=== PATIENT | male | born 1990 | race American Indian/Alaskan Native ===

== ENCOUNTER 2021-04-10 17:13 | Emergency (ER) | payer SELFPAY ==
[2021-04-10] MEDS ORDERED: SODIUM CHLORIDE 0.9% 1000 ML 1,000 ML IV ONE (17:48)
--- NOTE | 2021-04-10 17:53 | Event Note ---
ED Screening Note Date of service: 04/10/21 Time: 17:49 ED Screening Note: Patient presents to the ER today with complaints of seizure. Patient states that he was told by his coworkers that he had a seizure today at work Patient states that the last thing he remembers was he was in a squat position about the left furniture in the next thing he knew he was waking up off the floor. His coworkers told him he had a seizure for about 2 minutes. He states that he was told that he was foaming at the mouth, his eyes was rolled back, and he was stiff all over. Patient states that he did bite his tongue. He denies history of seizures. He denies any other significant past medical history. He states that his does drink alcohol daily and typically is after work. He states that he drink about 3 beers per day. He also states that it was very hot at work and he was sweating a lot at work today. This initial assessment/diagnostic orders/clinical plan/treatment(s) is/are subject to change based on patients health status, clinical progression and re- assessment by fellow clinical providers in the ED. Further treatment and workup at subsequent clinical providers discretion. Patient/guardian urged not to elope from the ED as their condition may be serious if not clinically assessed and managed. Initial orders include: Seizure order set.
[2021-04-10 18:07] LABS: Basophils # (Auto) 0.1 K/mm3 (0.0-0.1); Basophils % (Auto) 0.5 % (0.0-1.8); Eosinophils % (Auto) 0.1 % (0.0-4.3); Hematocrit 45.2 % (35.5-45.6); Hemoglobin 15.3 gm/dl (11.8-15.2); Lymphocytes # (Auto) 2.2 K/mm3 (1.2-5.4); Lymphocytes % (Auto) 14.5 % (13.4-35.0); Mean Corpuscular HGB Conc 34 % (32-34); Mean Corpuscular Volume 89 fl (84-94); Monocytes # (Auto) 0.9 K/mm3 (0.0-0.8); Monocytes % (Auto) 6.1 % (0.0-7.3); Platelet Count 280 K/mm3 (140-440); Red Blood Count 5.09 M/mm3 (3.65-5.03); Red Cell Distribution Width 15.6 % (13.2-15.2)
[2021-04-10] MEDS ORDERED: levETIRAcetam 1000 MG/NS 0.75% 1,000 MG/100 ML BAG IV ONE (18:15)
--- NOTE | 2021-04-10 18:19 | Emergency Department Report ---
ED Seizure HPI - General Chief Complaint: Seizure Stated Complaint: POST SEIZURE Time Seen by Provider: 04/10/21 18:07 Source: patient Mode of arrival: Ambulatory Limitations: No Limitations - History of Present Illness Initial Comments: Patient is 31 years old male with no significant past medical history. Patient presented to the ER for evaluation of possible seizure. Patient stated that he was working outside in the heat and he felt like he is getting dehydrated. Patient stated that he passed out. He said witnesses told him that he passed out for approximately 2 minutes he was jerking. Patient also bit his tongue. Patient stated that he did not have any past medical history of seizure however one of his cousin does have seizure. Patient denied any headache or head injury. No fever or chills or neck pain. Patient stated that he drink alcohol occasionally. MD Complaint: seizure -: Sudden Description of Episode: loss of consciousness, tonic-clonic movement, bladder incontinence, post-event confusion Witnessed:: Yes Trauma: No Seizure History: none Possible Precipitating Event: none Associated Symptoms: denies other symptoms Treatments Prior to Arrival: none - Related Data Previous Rx's Medication Instructions Recorded Last Taken Type levETIRAcetam [Keppra TAB] 500 mg PO BID #60 tablet 04/10/21 Unknown Rx Allergies Allergy/AdvReac Type Severity Reaction Status Date / Time No Known Allergies Allergy Unverified 04/10/21 17:33 ED Review of Systems ROS: Stated complaint: POST SEIZURE Other details as noted in HPI Comment: All other systems reviewed and negative Constitutional: denies: chills, fever Respiratory: denies: cough, shortness of breath Cardiovascular: denies: chest pain Gastrointestinal: denies: abdominal pain, nausea, vomiting Musculoskeletal: denies: back pain Neurological: denies: headache, weakness, numbness, paresthesias, confusion, abnormal gait ED Past Medical Hx - Past Medical History Previous Medical History?: Yes Hx Hypertension: Yes - Surgical History Past Surgical History?: No - Social History Smoking Status: Current Every Day Smoker Substance Use Type: Alcohol, Marijuana - Medications Home Medications: Home Medications Medication Instructions Recorded Confirmed Last Taken Type levETIRAcetam [Keppra TAB] 500 mg PO BID #60 tablet 04/10/21 Unknown Rx ED Physical Exam - General Limitations: No Limitations General appearance: alert, in no apparent distress, anxious - Head Head exam: Present: atraumatic, normocephalic, normal inspection - Eye Eye exam: Present: normal appearance, PERRL - ENT ENT exam: Present: normal exam, normal orophraynx, mucous membranes moist - Neck Neck exam: Present: normal inspection, full ROM. Absent: tenderness, meningismus - Respiratory Respiratory exam: Present: normal lung sounds bilaterally - Cardiovascular Cardiovascular Exam: Present: regular rate, normal rhythm, normal heart sounds - GI/Abdominal GI/Abdominal exam: Present: soft, normal bowel sounds. Absent: distended, tenderness, guarding, rebound, rigid, organomegaly, mass, bruit, pulsatile mass, hernia - Extremities Exam Extremities exam: Present: normal inspection, full ROM, normal capillary refill - Back Exam Back exam: Present: normal inspection, full ROM. Absent: CVA tenderness (R), CVA tenderness (L) - Neurological Exam Neurological exam: Present: alert, oriented X3, CN II-XII intact, normal gait, reflexes normal. Absent: motor sensory deficit - Psychiatric Psychiatric exam: Present: normal mood - Skin Skin exam: Present: warm, dry, intact, normal color ED Course Vital Signs 04/10/21 04/10/21 04/10/21 17:38 18:02 18:15 Temperature 98.9 F Pulse Rate 100 H 110 H 105 H Respiratory 18 15 16 Rate Blood Pressure 165/88 Blood Pressure 153/96 [Right] O2 Sat by Pulse 99 100 Oximetry 04/10/21 04/10/21 04/10/21 18:31 18:45 19:01 Temperature Pulse Rate 97 H 102 H 103 H Respiratory 15 20 Rate Blood Pressure 148/95 148/95 166/102 Blood Pressure [Right] O2 Sat by Pulse 100 90 100 Oximetry ED Medical Decision Making - Lab Data Result diagrams: 04/10/21 17:55 04/10/21 17:55 - EKG Data -: EKG Interpreted by Ct EKG shows normal: sinus rhythm Rate: normal - EKG Data Interpretation: no acute changes - Radiology Data Radiology results: report reviewed - Medical Decision Making Patient is 31 years old male with no significant past medical history. Patient presented to the ER for evaluation of possible seizure. Patient stated that he was working outside in the heat and he felt like he is getting dehydrated. Patient stated that he passed out. He said witnesses told him that he passed out for approximately 2 minutes he was jerking. Patient also bit his tongue. Patient stated that he did not have any past medical history of seizure however one of his cousin does have seizure. Patient denied any headache or head injury. No fever or chills or neck pain. Patient stated that he drink alcohol occasionally. Patient remained stable in the ER. No seizure activity observed. Patient received Keppra 1 g IV. I do not believe this is related to his alcohol as he told me that he does not drink daily and sometimes he will go days without alcohol and there is no problem. Labs showed leukocytosis and I think it is most likely due to the seizure. CKs high and patient stated that he was working in the heat. Patient received normal saline. Rest of his labs are unremarkable including a normal kidney function. UDS is positive for methamphetamine. Advised patient not to drive or operate heavy machinery. I gave patient prescription for Keppra and I gave him Dr. Larios, neurologist to follow-up with him in the next 2 to 3 days and to return to the ER if he develop any new symptoms. Critical care attestation.: If time is entered above; I have spent that time in minutes in the direct care of this critically ill patient, excluding procedure time. ED Disposition Clinical Impression: New onset seizure, Rhabdomyolysis, Methamphetamine abuse Disposition: DC-01 TO HOME OR SELFCARE Is pt being admited?: No Condition: Stable Instructions: Seizure, Adult, Methamphetamines Use Disorder Prescriptions: levETIRAcetam [Keppra TAB] 500 mg PO BID #60 tablet Referrals: ANAMIKA LARIOS MD [Referring] - 3-5 Days
[2021-04-10 18:23] LABS: Alanine Aminotransferase 29 units/L (7-56); BUN/Creatinine Ratio 9; Blood Urea Nitrogen 10 mg/dL (9-20); Calcium 9.4 mg/dL (8.4-10.2); Hemolysis Index 5
[2021-04-10 18:40] LABS: Bacteria,Urine 1+ /HPF (Negative); Bilirubin,Urine NEG (Negative); Blood,Urine NEG (Negative); Color,Urine Colorless (Yellow); Protein,Urine <15 mg/dL mg/dL (Negative); Urobilinogen,Urine < 2.0 mg/dL (<2.0); WBC,Urine < 1.0 /HPF (0.0-6.0)
[2021-04-10 18:46] LABS: Benzodiazepines Screen,Urine Negative; Cannabinoid Screen,Urine Negative; Cocaine Screen,Urine Negative; Methadone Screen,Urine Negative; Opiate Screen,Urine Negative
[2021-04-10 18:58] LABS: Amphetamine Screen,Urine Positive
--- NOTE | 2021-04-10 19:09 | Cat Scan Report ---
CT HEAD WITHOUT CONTRAST INDICATION / CLINICAL INFORMATION: Seizure. TECHNIQUE: All CT scans at this location are performed using CT dose reduction for ALARA by means of automated exposure control. COMPARISON: None available. FINDINGS: HEMORRHAGE: None. EXTRA-AXIAL SPACES: Normal in size and morphology for the patient's age. VENTRICULAR SYSTEM: Normal in size and morphology for the patient's age. CEREBRAL PARENCHYMA: No significant abnormality. No acute territorial infarct. MIDLINE SHIFT / HERNIATION: None. CEREBELLUM / BRAINSTEM: No significant abnormality. ORBITS: Normal as visualized. SOFT TISSUES: No significant abnormality. SKULL: No significant abnormality. PARANASAL SINUSES / MASTOID AIR CELLS: Normal as visualized. ADDITIONAL FINDINGS: None. IMPRESSION: 1. No acute intracranial abnormality. Signer Name: Scot Bhatia MD Signed: 04/10/2021 7:05 PM Workstation Name: [id number]
[2021-04-10 20:22] VITALS: BP 137/93
--- NOTE | 2021-04-12 09:47 | Electrocardiograph Report ---
[facility] Test Date: 2021-04-10 Test Time: 18:20:23 Pat Name: LARON RUSS Department: Room: Gender: M [place] Steward: TV : 1990 Requested By: AGATHA CASE Order Number: [id number] Reading MD: Richard Zayas Measurements Intervals [place] Rate: 93 P: 73 NM: 180 QRS: 70 QRSD: 84 T: 10 QT: 352 QTc: 439 Interpretive Statements Sinus rhythm LAE, consider biatrial enlargement ST elev, probable normal early repol pattern No previous ECG available for comparison Electronically Signed On 04-12-2021 9:46:57 EDT by Richard Zayas
== END 2021-04-10 20:05 | disposition home or self-care (01) ==
LOC: ED 17:13
DX: G40.909 Epilepsy, unspecified, not intractable, without status epilepticus (principal); F15.10 Other stimulant abuse, uncomplicated; M62.82 Rhabdomyolysis; I10 Essential (primary) hypertension; F12.90 Cannabis use, unspecified, uncomplicated; F17.200 Nicotine dependence, unspecified, uncomplicated; Z79.899 Other long term (current) drug therapy
CPT/HCPCS: 36415; 70450; 80053; 80307; 81001; 82550; 85025; 93005; 96361; 96374; 99284; J1953; J7030; 80320; G0480